=== PATIENT | male | born 1935 | race Caucasian/White ===

== ENCOUNTER 2018-11-14 10:43 | Inpatient (IN) | payer MEDICARE, BC ==
--- NOTE | 2018-11-20 13:08 | NUR ---
Patient ambulated to [facility]. Alert and oriented. Patient states that he ate lunch at 1200. Dr. Stanton made aware. Surgery cancelled. Rescheduled for next week 11/27/18. Patient walked back out to waiting room.
== END 2018-11-20 13:30 | disposition home or self-care (01) | DRG 696 ==
LOC: INPTSU 11-20 12:58 → SURG 11-20 15:00
PROVIDERS: ADMIT Urology
DX: R31.0 Gross hematuria (principal); Z53.09 Procedure and treatment not carried out because of other contraindication
CPT/HCPCS: OP

== ENCOUNTER 2018-11-27 12:00 | Day surgery (SDC) | payer MEDICARE, BC ==
[2018-11-27] VITALS (11 sets, daily range): BP systolic 125–182; BP diastolic 62–87; PULSE 48–87; TEMP 97.9–98.9
[~2018-11-27] VITALS: Ht 167.6 cm; Wt 83.2 kg
[2018-11-27] MEDS ORDERED: ATIVAN 0.50.5 MG/TAB PO (12:25)
[2018-11-27] MEDS ORDERED: HYTRIN 5MG C5 MG/CAP PO (12:25)
[2018-11-27] MEDS ORDERED: PRAVACHOL 40MG40 MG PO (12:25)
[2018-11-27] MEDS ORDERED: HCTZ 25MG TAB25 MG PO (12:26)
[2018-11-27] MEDS ORDERED: ASPIRIN 81M81 MG/TA2 PO (12:26)
[2018-11-27] MEDS ORDERED: PROTONIX 40MG T40 MG PO (12:26)
[2018-11-27] MEDS ORDERED: ZYRTEC 10MG10 MG PO (12:27)
[2018-11-27] MEDS ORDERED: TYLENOL PM EXTR1 TA1 PO (12:27)
[2018-11-27] MEDS ORDERED: LIQUIFILM TEARS15 ML OU (12:27)
[2018-11-27] MEDS ORDERED: COLACE 100100 MG/CAP PO (12:28)
[2018-11-27] MEDS ORDERED: OMEGA-31 SGL PO (12:29)
--- NOTE | 2018-11-27 22:39 | NUR ---
PT RESTING IN BED A+OX4. reports some discomfort with catheter, no other pain. harris is secured to leg, draining freely, no kinks. no blood or clots noted in urine. pt bp elevated, will continue to monitor. no needs at this time. shift assessment complete. call light in reach.
[2018-11-28 00:02] VITALS: BP 143/45; PULSE 50; TEMP 97.9
--- NOTE | 2018-11-28 02:53 | NUR ---
COPELAND DRAINING FREELY, NO BLOOD OR CLOTS NOTED.
[2018-11-28 04:00] VITALS: BP 153/66; PULSE 53; TEMP 97.6
--- NOTE | 2018-11-28 05:38 | NUR ---
PT HAD AN UNEVENTFUL NIGHT. REPORTED NO PAIN. SLEPT THROUGHOUT [facility]. PT COPELAND REMAINED DRAINING FREELY, NO KINKS, NO BLOOD OR CLOTS IN URINE. URINE CLEAR AND YELLOW. COPELAND SECURED TOO LEG. PT ON ROOM AIR. VSS. CBI DC DURING NIGHT. IV FLUSHES WELL, NO SWELLING, NO REDNESS. PT REPORTS NO NEEDS AT THIS TIME. CALL LIGHT IN REACH
--- NOTE | 2018-11-28 06:49 | NUR ---
REPORT GIVEN TO EDNA YOUNG. PT SLEEPING AT THIS TIME
--- NOTE | 2018-11-28 07:39 | NUR ---
Pt's harris to CBI continues to be clamped and draining clear, yellow urine. Dr. Stanton notified and order to prime and pull harris cath obtained. Pt educated on procedure and told to make staff aware of when he urinates, expressed understanding. Approx. 20 mL of sterile water removed from intact balloon. Pt tolerated well. Flori care completed. Pt denies pain or discomfort at this time. Saline lock to left hand is free of complications. Pt ordering breakfast, denies any needs.
[2018-11-28 07:49] VITALS: BP 142/71; PULSE 56; TEMP 97.4
--- NOTE | 2018-11-28 09:23 | NUR ---
GLENDA met with the patient to discuss a discharge plan. The patient lives in [place] with his Rosemary. The patient's PCP is Dr. Marty Gordon and the patient receives his medications from [facility] and from [facility] in [place]. The patient does not have advanced directives in the EMR, but reports he does have them completed. The patient plans to return home with Rosemary upon discharge. There are no additional needs a this time.
--- NOTE | 2018-11-28 10:32 | NUR ---
Pt urinated 250 mL of yellow urine. Pt does report pain while urinating but does not need any pain medication at this time.
[2018-11-28 11:49] VITALS: BP 133/54; PULSE 51; TEMP 97.8
--- NOTE | 2018-11-28 11:54 | NUR ---
Initial visit; Patient and his thanked Certified Orthotist/Pedorthist for looking in on him and offering god's blessings.
--- NOTE | 2018-11-28 12:02 | NUR ---
Pt urinated approx. 50 mL of yellow urine post catheter removal. PO fluids encouraged. Pt denies any pain or needs.
[2018-11-28 13:15] VITALS: BP 131/60; PULSE 72
--- NOTE | 2018-11-28 14:32 | NUR ---
Pt was discharged home from hospital after criteria met. All discharge paperwork and instructions were reviewed with the patient who expressed understanding and had no questions. Saline lock removed, catheter tip intact. Pt was escorted out of facility by staff.
== END 2018-11-28 14:36 | disposition home or self-care (01) ==
LOC: SDCO 12:00 → INPTSU 12:00 → SURG 12:00 → EDSTATUS 14:00 → SURG 15:20 → INPTSU 15:20 → SURG 11-28 14:36 → SDCO 11-28 14:36
DX: C67.9 Malignant neoplasm of bladder, unspecified (principal); I25.10 Atherosclerotic heart disease of native coronary artery without angina pectoris; I10 Essential (primary) hypertension; Z95.5 Presence of coronary angioplasty implant and graft; K21.9 Gastro-esophageal reflux disease without esophagitis; Z87.891 Personal history of nicotine dependence; Z82.49 Family history of ischemic heart disease and other diseases of the circulatory system; R31.0 Gross hematuria
CPT/HCPCS: OP; J0690; J1100; J1885; J2405; J2704; J3010; J7120